=== PATIENT | male | born 1955 | race Caucasian/White ===

== ENCOUNTER 2018-06-06 10:42 | Emergency (ER) | payer MEDICAID ==
[~2018-06-06] VITALS: Ht 185.4 cm; Wt 127.0 kg
[2018-06-06 10:55] VITALS: BP 134/63
[2018-06-06] MEDS ORDERED: SODIUM CHLORIDE 0.9% 1,000 ML IV ONE (13:48)
[2018-06-06] MEDS ORDERED: cefTRIAXone 1GM/50ML D5W 50 ML IV ONE (14:00)
[2018-06-06 14:59] LABS: Urine Bacteria NONE SEEN /hpf (None Seen); Urine Blood Negative /uL (Negative); Urine Specific Gravity 1.009 (1.001-1.035); Urine WBC 2 /hpf (0 - 3)
[2018-06-06 16:09] LABS: Basophils # (auto) 0 uL; Basophils % (auto) 0.5 % (0.0-2.0); Eosinophils # (auto) 0.2 uL; Eosinophils % (auto) 1.9 % (0.0-7.0); Hematocrit 39.2 % (41.0-53.0); Hemoglobin 12.9 g/dL (13.5-17.5); Lymphocytes # (auto) 0.9 uL; Lymphocytes % (auto) 12.1 % (10.0-50.0); Mean Corpuscular Hemoglobin 29.5 pg (28.0-32.0); Mean Corpuscular Hgb Conc. 32.8 g/dL (32.0-36.0); Mean Corpuscular Volume 89.9 fL (80.0-100.0); Monocytes # (auto) 0.6 uL; Monocytes % (auto) 7.3 % (0.0-12.0); Neutrophils # (auto) 6.1 uL; Neutrophils % (auto) 78.2 % (37.0-80.0); Nucleated Red Blood Cells % 0.1 %; Platelet Count (auto) 270 10^3/uL (140-450); Red Blood Cells 4.36 10^6/uL (4.5-5.90); Red Cell Distribution Width 14.4 % (11.8-14.3); White Blood Cell 7.8 10^3/uL (4.4-10.8)
[2018-06-06 16:10] LABS: Albumin 3.2 g/dL (3.4-5.0); Calcium 8.6 mg/dL (8.5-10.1); Potassium 4.5 mmol/L (3.5-5.1)
[2018-06-06 16:11] LABS: INR 0.9 (0.9-1.15); Partial Thromboplastin Time 24.3 sec (23.78-33.04); Prothrombin Time 9.7 sec (9.27-12.13)
[2018-06-06 16:13] LABS: Bilirubin, Total 0.4 mg/dL (0.2-1.0)
[2018-06-08] MEDS ORDERED: ASPI81TA27 PO (00:50)
[2018-06-08] MEDS ORDERED: ERGO400T PO (00:50)
[2018-06-08] MEDS ORDERED: HYDR25TA4 PO (00:50)
[2018-06-08] MEDS ORDERED: LISI30TA36 PO (00:50)
[2018-06-08] MEDS ORDERED: IBUP800T24 PO (00:50)
[2018-06-08] MEDS ORDERED: CLIN1CAP4 PO (00:50)
== END 2018-06-06 17:05 | disposition home or self-care (01) ==
LOC: ER 10:42
DX: L03.116 Cellulitis of left lower limb (principal); L02.416 Cutaneous abscess of left lower limb; S81.802A Unspecified open wound, left lower leg, initial encounter; M85.862 Other specified disorders of bone density and structure, left lower leg; M85.861 Other specified disorders of bone density and structure, right lower leg; M62.561 Muscle wasting and atrophy, not elsewhere classified, right lower leg; M25.532 Pain in left wrist; F10.20 Alcohol dependence, uncomplicated; Y90.9 Presence of alcohol in blood, level not specified; X08.8XXA Exposure to other specified smoke, fire and flames, initial encounter; Y93.89 Activity, other specified; Y92.89 Other specified places as the place of occurrence of the external cause; Y99.8 Other external cause status
CPT/HCPCS: 36415; 73700; 80053; 81001; 82962; 83880; 84484; 85025; 85610; 85730; 96365; 96366; 99284; J0696

== ENCOUNTER 2020-11-25 11:30 | Inpatient (IN) | payer MEDICAID ==
[~2020-11-25] VITALS: Ht 188 cm; Wt 125.3 kg
[~2020-11-25 11:30] MED LIST: ASPI-543 PO; CLIN300C8 PO; ERGO400T PO; HYDR25TA4 PO; IBUP800T26 PO; LISI30TA4 PO
[2020-11-25] MEDS ORDERED: ADENOSINE 6 MG/2 ML INJ IV ONE ×3 (12:00→13:30)
[2020-11-25 13:16] LABS: Basophils # (auto) 0 10 ^3/uL (0-0.2); Basophils % (auto) 0.2 % (0.0-2.0); Eosinophils # (auto) 0 10 ^3/uL (0-0.8); Eosinophils % (auto) 0.2 % (0.0-7.0); Hematocrit 49.2 % (41.0-53.0); Hemoglobin 16.2 g/dL (13.5-17.5); Lymphocytes # (auto) 0.4 10 ^3/uL (0.4-5.4); Lymphocytes % (auto) 3.4 % (10.0-50.0); Mean Corpuscular Hemoglobin 30.8 pg (28.0-32.0); Mean Corpuscular Volume 93.5 fL (80.0-100.0); Monocytes # (auto) 1.3 10 ^3/uL (0-1.3); Monocytes % (auto) 10.2 % (0.0-12.0); Neutrophils # (auto) 11.3 10 ^3/uL (1.6-8.6); Nucleated Red Blood Cells % 0.1 %; Red Blood Cells 5.27 10^6/uL (4.5-5.90); Red Cell Distribution Width 14.7 % (11.8-14.3); White Blood Cell 13.1 10^3/uL (4.4-10.8)
[2020-11-25 13:36] LABS: Albumin 2.6 g/dL (3.4-5.0); Calcium 9.2 mg/dL (8.5-10.1); Magnesium 2.2 mg/dL (1.6-2.6); Potassium 3.5 mmol/L (3.5-5.1)
[2020-11-25 13:49] LABS: BUN/Creatinine Ratio 17.6; Bilirubin, Total 1.1 mg/dL (0.2-1.0); Total Protein 7.9 g/dL (6.4-8.2)
[2020-11-25] MEDS ORDERED: IOHEXOL 350 MG/ML 100ML IJ ONE (14:36)
[2020-11-25] MEDS ORDERED: SODIUM CHLORIDE 0.9% 1,000 ML IV ONE (18:30)
[2020-11-25] MEDS ORDERED: NITROGLYCERIN 0.4 MG SL TAB SL PRN (18:30)
[2020-11-25] MEDS ORDERED: ACETAMINOPHEN 325 MG TAB PO PRN (18:30)
[2020-11-25] MEDS ORDERED: MORPHINE SULFATE INJECTION 2 MG/ML SYRG IV PRN ×2 (18:30)
[2020-11-25] MEDS: METOPROLOL TARTRATE 25 MG TAB PO SCH ×2 (18:53→22:39)
[2020-11-25] MEDS: SODIUM CHLORIDE 0.9% 1,000 ML IV SCH (18:53)
[2020-11-25] MEDS: HYDROcodone-ACET 5/325MG TAB PO PRN (20:30)
[2020-11-26] VITALS (7 sets, daily range): BP systolic 125–156; BP diastolic 69–107
[2020-11-26] MEDS ORDERED: METO-289 PO (01:48)
[2020-11-26] MEDS ORDERED: HYDR25TA5 PO (01:48)
[2020-11-26] MEDS ORDERED: LISI40TA11 PO (01:48)
[2020-11-26] MEDS ORDERED: ATOR20TA PO (01:48)
[2020-11-26] MEDS: HYDROcodone-ACET 5/325MG TAB PO PRN ×2 (02:34→09:05)
[2020-11-26 06:03] LABS: Basophils # (auto) 0 10 ^3/uL (0-0.2); Basophils % (auto) 0.3 % (0.0-2.0); Eosinophils # (auto) 0.1 10 ^3/uL (0-0.8); Eosinophils % (auto) 1.1 % (0.0-7.0); Hematocrit 41.8 % (41.0-53.0); Hemoglobin 14.6 g/dL (13.5-17.5); Lymphocytes # (auto) 0.7 10 ^3/uL (0.4-5.4); Lymphocytes % (auto) 6.7 % (10.0-50.0); Mean Corpuscular Hemoglobin 32.9 pg (28.0-32.0); Mean Corpuscular Hgb Conc. 34.8 g/dL (32.0-36.0); Mean Corpuscular Volume 94.3 fL (80.0-100.0); Monocytes # (auto) 1.1 10 ^3/uL (0-1.3); Monocytes % (auto) 10.8 % (0.0-12.0); Neutrophils # (auto) 8.1 10 ^3/uL (1.6-8.6); Neutrophils % (auto) 81.1 % (37.0-80.0); Red Blood Cells 4.44 10^6/uL (4.5-5.90); Red Cell Distribution Width 14.8 % (11.8-14.3)
[2020-11-26 06:22] LABS: Potassium 3.4 mmol/L (3.5-5.1)
[2020-11-26] MEDS: SODIUM CHLORIDE 0.9% 1,000 ML IV SCH ×2 (06:31→17:29)
[2020-11-26 06:35] LABS: BUN/Creatinine Ratio 25.2; Calcium 8.2 mg/dL (8.5-10.1)
[2020-11-26] MEDS: METOPROLOL TARTRATE 25 MG TAB PO SCH ×2 (09:06→21:32)
[2020-11-26] MEDS: IBUPROFEN 800 MG TAB PO PRN (15:35)
[2020-11-27] MEDS: SODIUM CHLORIDE 0.9% 1,000 ML IV SCH ×2 (00:01→10:30)
[2020-11-27 05:00] VITALS: BP 140/69
[2020-11-27] MEDS: IBUPROFEN 800 MG TAB PO PRN ×2 (08:09→17:52)
[2020-11-27] MEDS: METOPROLOL TARTRATE 25 MG TAB PO SCH (08:15)
[2020-11-27 08:19] VITALS: BP 128/80
[2020-11-27 13:00] VITALS: BP 143/90
[2020-11-27 17:18] VITALS: BP 127/67
[2020-11-27 17:36] VITALS: BP 127/67
== END 2020-11-27 20:08 | DRG 201 ==
LOC: ER 11:30 → EDBD 11:30 → TELE 18:16 → TELE-WESTW 23:17
PROVIDERS: ADMIT Internal Medicine; ATTEND Internal Medicine
DX: I47.1 Supraventricular tachycardia (principal); N17.9 Acute kidney failure, unspecified; M15.9 Polyosteoarthritis, unspecified; E78.5 Hyperlipidemia, unspecified; N18.2 Chronic kidney disease, stage 2 (mild); E87.6 Hypokalemia; M79.603 Pain in arm, unspecified; R77.8 Other specified abnormalities of plasma proteins; I12.9 Hypertensive chronic kidney disease with stage 1 through stage 4 chronic kidney disease, or unspecified chronic kidney disease; Z20.822 Contact with and (suspected) exposure to COVID-19; Z82.49 Family history of ischemic heart disease and other diseases of the circulatory system; Z87.891 Personal history of nicotine dependence
CPT/HCPCS: 36415; 71045; 71275; 80048; 80053; 83735; 84484; 85025; 85379; 87426; 93005; 93306; 93970; 96361; 96374; 97163; 97530; 99291; G0378; J0153